=== PATIENT | male | born 1965 | race Caucasian/White ===

== ENCOUNTER 2021-09-21 22:22 | Inpatient (IN) | payer OTHER, SELFPAY ==
[2021-09-21 22:41] VITALS: BP 150/88; PULSE 92; RESP 18; TEMP 36.4; O2SAT 96; BMI 36.9
--- NOTE | 2021-09-21 22:46 | W.ED.PSYCHS ---
HPI - Psych General: Chief Complaint: Psychiatric Symptoms Stated Complaint: [address] [place] [address] Time Seen by Provider: 09/21/21 22:27 Source: patient and police Mode of arrival: other (police) Limitations: no limitations History of Present Illness: 56-year-old male who is here with police for suicidal ideation. He states that recently and found out that his has been cheating on him for years and has became severely depressed over it. He states he was driving down the road 100 mph there they looking for a rock left run into and then decided not to he also had pills out before and was going to take them all to kill himself he still having active suicidal thoughts currently as well he has been drinking today denies any worsening improving factors. Associated symptoms: Reports depression and suicidal ideation Review of Systems Const: Denies: fever(s), chills, body aches or change in appetite Eyes: Denies: blurry vision or eye discomfort ENMT: Denies: throat pain or dental pain Card: Denies: chest pain Resp: Denies: dyspnea GI: Denies: abdominal pain, nausea, vomiting or diarrhea : Denies: dysuria Musc: Denies: neck pain or back pain Skin/Breast: Denies: rash Neuro: Denies: headache(s) Psych: Reports: depression and suicidal ideation Gee/Lymph: Denies: easy bruising All/Imm: Denies: urticaria PFSH ED PFSH: Family History (Updated 09/21/21 @ 22:49 by Rasheed Gomez MD) Denies family history of Cancer Social History (Updated 09/21/21 @ 22:49 by Rasheed Gomez MD) Alcohol intake: current Physical Exam Const: COMMON NORMALS: no acute distress, patient oriented x3 and healthy appearing HENMT: COMMON NORMALS: normocephalic and atraumatic HEAD & SCALP: normocephalic and atraumatic Eye: COMMON NORMALS: Equal, round and reactive pupils present and EOMs intact bilaterally PUPIL: Yes Equal, round and reactive pupils present Neck/C-Spine: COMMON NORMALS: full ROM and supple Chest: COMMONS NORMALS: normal inspection of the chest and normal palpation of entire chest wall Resp: COMMON NORMALS: normal respiratory effort, No retractions, No use of accessory muscles and clear to auscultation bilaterally AUSCULTATION: clear to auscultation bilaterally Cardio: COMMON NORMALS: regular rate, regular rhythm and No murmurs present (Cardio) RATE: regular rate RHYTHM: regular rhythm GI: COMMON NORMALS: Normal to inspection, nondistended, normoactive bowel sounds present, Soft to palpation, non-tender and no masses PALPATION: Yes Soft to palpation Extremity: COMMON NORMALS: normal to inspection and full ROM Neuro: COMMON NORMALS: patient oriented x3, moves all extremities and no focal motor deficits Psych: COMMON NORMALS: mental status grossly normal, Normal thought process present and cooperative MOOD & AFFECT: Yes depressed mood THOUGHT PROCESS: Normal thought process present THOUGHT CONTENT: Yes Suicidality present Skin: COMMON NORMALS: no rashes or lesions noted and no wounds GENERAL SKIN EXAM: no rashes or lesions noted Course Vital Signs: Vital signs: Vital Signs Temperature 97.6 F 09/21/21 22:41 Pulse Rate 92 09/21/21 22:41 Respiratory Rate 18 09/21/21 22:41 Blood Pressure 150/88 09/21/21 22:41 Pulse Oximetry 96 09/21/21 22:41 MDM - Psych Medical Decision Making Patient presents here with suicidal ideation he has been medically cleared I spoke to Dr. Song will admit the psychiatric unit. Lab Data : 09/21/21 22:46 09/21/21 22:46 Laboratory Results WBC 10.2 10^3/uL (4.0-10.0) H 09/21/21 22:46 RBC 4.82 10^6/uL (4.1-5.3) 09/21/21 22:46 Hgb 15.4 g/dL (11.7-16.6) 09/21/21 22:46 Hct 44.3 % (42.0-52.0) 09/21/21 22:46 MCV 91.9 fl (80-94) 09/21/21 22:46 MCH 32.0 pg (28.0-34.0) 09/21/21 22:46 MCHC 34.8 g/dL (30.0-36.0) 09/21/21 22:46 RDW 11.9 % (12.1-15.1) L 09/21/21 22:46 Plt Count 254 10^3/cmm (130-400) 09/21/21 22:46 MPV 9.2 fL (7.4-10.4) 09/21/21 22:46 Neut % (Auto) 77.1 % 09/21/21 22:46 Lymph % (Auto) 16.2 % 09/21/21 22:46 [place] % (Auto) 5.5 % 09/21/21 22:46 Eos % (Auto) 0.4 % 09/21/21 22:46 Baso % (Auto) 0.4 % 09/21/21 22:46 Neut # (Auto) 7.89 10^3/uL (1.8-7.7) H 09/21/21 22:46 Lymph # (Auto) 1.7 10^3/uL (0.8-4.8) 09/21/21 22:46 [place] # (Auto) 0.6 10^3/uL (0.2-0.9) 09/21/21 22:46 Eos # (Auto) 0.0 10^3/uL (0.0-0.8) 09/21/21 22:46 Baso # (Auto) 0.0 10^3/uL (0.0-0.1) 09/21/21 22:46 Nucleated RBC % (auto) 0 % 09/21/21 22:46 Nucleated RBCs # 0.0 /100WBC 09/21/21 22:46 Sodium 144 mmol/L (136-145) 09/21/21 22:46 Potassium 3.2 mmol/L (3.5-5.1) L 09/21/21 22:46 Chloride 104 mmol/L (98-107) 09/21/21 22:46 Carbon Dioxide 22 mmol/L (22-29) 09/21/21 22:46 Anion Gap 21.2 (5-19) H 09/21/21 22:46 BUN 16 mg/dL (6-20) 09/21/21 22:46 Creatinine 0.9 mg/dL (0.7-1.2) 09/21/21 22:46 GFR Calculation 87.0 mL/min (90-130) L 09/21/21 22:46 Glucose 110 mg/dL (65-115) 09/21/21 22:46 Calculated Osmolality 300 mOsm/kg (285-295) H 09/21/21 22:46 Calcium 8.2 mg/dL (8.5-10.5) L 09/21/21 22:46 Total Bilirubin 0.5 mg/dL (0.15-1.2) 09/21/21 22:46 AST 30 U/L (0-40) 09/21/21 22:46 ALT 40 U/L (0-41) 09/21/21 22:46 Alkaline Phosphatase 98 IU/L (40-130) 09/21/21 22:46 Total Protein 7.3 g/dL (6.6-8.7) 09/21/21 22:46 Albumin 4.6 g/dL (3.5-5.2) 09/21/21 22:46 Globulin 2.7 g/dL (1.3-4.6) 09/21/21 22:46 Salicylates < 0.3 mg/dL (3-10) L 09/21/21 22:46 Acetaminophen < 5.0 ug/mL (10-30) L 09/21/21 22:46 Ethyl Alcohol 174 mg/dL (0-10) H 09/21/21 22:46 Discharge Plan Discharge Patient Disposition: Admitted As Inpatient Clinical Impression: Suicidal ideation, ETOH abuse Coding Level of Care Code ED Production Stage Manager for Janene Fwd Exam Comprehensive
[2021-09-21 23:01] LABS: Basophils % 0.4 %; Eosinophils % 0.4 %; Hematocrit 44.3 % (42.0-52.0); Hemoglobin 15.4 g/dL (11.7-16.6); Lymphocytes # 1.7 10^3/uL (0.8-4.8); Lymphocytes % 16.2 %; Mean Corpuscular HGB Conc 34.8 g/dL (30.0-36.0); Mean Corpuscular Volume 91.9 fl (80-94); Mean Platelet Volume 9.2 fL (7.4-10.4); Monocytes # 0.6 10^3/uL (0.2-0.9); Monocytes % 5.5 %; Neutrophils # 7.89 10^3/uL (1.8-7.7); Neutrophils % 77.1 %; Nucleated Red Blood Cells % 0 %; Platelet Count 254 10^3/cmm (130-400); Red Blood Count 4.82 10^6/uL (4.1-5.3); Red Cell Distribution Width 11.9 % (12.1-15.1); White Blood Count 10.2 10^3/uL (4.0-10.0)
[2021-09-21 23:25] LABS: Alanine Aminotransferase 40 U/L (0-41); Albumin Level 4.6 g/dL (3.5-5.2); Alcohol Level 174 mg/dL (0-10); Alkaline Phosphatase 98 IU/L (40-130); Anion Gap 21.2 (5-19); Aspartate Amino Transferase 30 U/L (0-40); Blood Urea Nitrogen 16 mg/dL (6-20); Calcium 8.2 mg/dL (8.5-10.5); Carbon Dioxide 22 mmol/L (22-29); Chloride 104 mmol/L (98-107); Globulin 2.7 g/dL (1.3-4.6); Glucose 110 mg/dL (65-115); Osmolality Calculated 300 mOsm/kg (285-295); Potassium 3.2 mmol/L (3.5-5.1); Sodium 144 mmol/L (136-145); Total Bilirubin 0.5 mg/dL (0.15-1.2); Total Protein 7.3 g/dL (6.6-8.7)
[2021-09-21 23:32] LABS: Acetaminophen < 5.0 ug/mL (10-30); Salicylate < 0.3 mg/dL (3-10)
--- NOTE | 2021-09-22 01:11 | PC.NURSE ---
Pt. is lying in the floor and faces away from staff. pt. is crying , states that his kids don't love him.
[2021-09-22 03:29] VITALS: BP 144/81; PULSE 81; RESP 20; TEMP 37; O2SAT 95
[2021-09-22 06:00] VITALS: BP 155/93; PULSE 71; RESP 18; TEMP 36.8; O2SAT 98
[2021-09-22 07:31] LABS: Amphetamines Screen Urine Positive (Negative); Barbiturates Screen Urine Negative (Negative); Benzodiazepines Screen Urine Negative (Negative); Cocaine Screen Urine Negative (Negative); Opiate Screen Urine Positive (Negative); PCP Screen Urine Negative (Negative); THC Screen Urine Negative (Negative)
[2021-09-22] MEDS: HYDROcodone-acetaminophen 7.5-325 mg Tablet 1 TAB PO ×2 (09:09→17:48)
[2021-09-22] MEDS: thiamine 100 mg Tablet PO (09:09)
[2021-09-22] MEDS: multivitamin therapeutic Tablet 1 TAB PO (09:12)
[2021-09-22] MEDS: pantoprazole DR 40 mg Tablet PO (09:12)
[2021-09-22] MEDS: folic acid 1 mg Tablet PO (09:12)
[2021-09-22] MEDS: FUROsemide 40 mg Tablet PO (09:13)
[2021-09-22] MEDS: lisinopril 20 mg Tablet PO (09:13)
[2021-09-22] MEDS: metoprolol succinate ER (24 HR) 50 mg Tablet PO (11:12)
[2021-09-22 14:00] VITALS: BP 154/82; PULSE 63; RESP 18; TEMP 36.7; O2SAT 97
--- NOTE | 2021-09-22 15:57 | P.NPUHP_ITS ---
Providers/Chief Complaint Admitting Physician: Tye Song MD Chief Complaint: [address] [place] [address] NPU History of Present Illness Kendrick Coreas is a 56 year old male who presented to the emergency department with the following report: Chief Complaint: Psychiatric Symptoms Stated Complaint: [address] [place] [address] Time Seen by Provider: 09/21/21 22:27 Source: patient and police Mode of arrival: other (police) Limitations: no limitations History of Present Illness:?? 56-year-old male who is here with police for suicidal ideation.? He states that recently and found out that his has been cheating on him for years and has became severely depressed over it.? He states he was driving down the road 100 mph there they looking for a rock left run into and then decided not to he also had pills out before and was going to take them all to kill himself he still having active suicidal thoughts currently as well he has been drinking today denies any worsening improving factors. Associated symptoms: Reports depression and suicidal ideation He was admitted to the psychiatric unit for definitive treatment of those issues. He presents today reporting that he has never been in a psychiatric hospital, has never had outpatient services, and has never been on medication. He denies smoking cigarettes, endorses alcohol once week, maybe one mixed drink, denies marijuana or any other illicit drug use. He has never been to rehab and never had a DUI. He presents reporting that he has never really had psychiatric services but reports he had a fairly traumatic couple of days. He reports that he figured out his had been cheating the last three years with several people and he reportedly drank too much; he says he made one comment about being suicidal. Review of the chart, which is a little more involved, has the plain clothes police officer who put him on the 96 hour hold, stating that on two or three occasions the patient made statements endorsing lethality on three separate occasions. The patient had been drinking and he was positive for alcohol and his GDS was also positive for methamphetamines and opiates; this was noted after our interview and will need to review the latter two with him tomorrow as he acknowledged he had been drink ing. Otherwise he denies any problems, he states it was just a case of him being drunk and saying the wrong thing. Denies any history or need for psychiatric interventions and was hoping he could go home. He was not interested in any medications or referrals. Psychiatric History: As above. Substance Abuse History: As above Family History: Patient denies mental health or addiction issues on either side of the family and denies suicide attempts or completions in the family. Developmental History: There were no problems with , or delivery, learned to walk and talk and met his developmental milestones on time, and denies need for speech therapy, learning support, emotional support or special education classes. Psychosocial History: He reports his parents were together when he was born and stayed together. He reports he has a younger brother and older sister. He reports his childhood was good and denies any emotional, sexual or physical abuse. He endorses graduating from high school with no additional training. He identifies as heterosexual and his longest relationship is his current relationship of 19 years. He reports that he has been two times and once; he reports he has two biological children and three step children. His son is in his 30s and his daughter is in her 20s. 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 He reports he lives in a house with his and youngest step-son who is about 19 years old. Legal History: He denies ever being in retirement or having any legal issues. Medical History: He endorses high blood pressure, high cholesteral, arthritis and obesity. Meds NPU Home Medications Medication Instructions Recorded Confirmed Last Taken Type atorvastatin 10 mg tablet 10 mg PO DAILY 09/22/21 09/22/21 Unknown History etodolac 400 mg tablet 400 mg PO BID 09/22/21 09/22/21 Unknown History furosemide 40 mg tablet 40 mg PO DAILY 09/22/21 09/22/21 Unknown History hydrocodone 7.5 mg-acetaminophen 1 tab PO BID 09/22/21 09/22/21 Unknown History 325 mg tablet lisinopril 20 mg tablet 20 mg PO DAILY 09/22/21 09/22/21 Unknown History metoprolol succinate 50 mg 50 mg PO DAILY 09/22/21 09/22/21 Unknown History tablet,extended release 24 hr omeprazole 20 mg capsule,delayed 20 mg PO DAILY 09/22/21 09/22/21 Unknown History release Allergies Allergy/AdvReac Type Severity Reaction Status Date / Time No Known Allergies Allergy Verified 09/21/21 22:41 PFS NPU PFSH: Family History (Updated 09/21/21 @ 22:49 by Rasheed Gomez MD) Denies family history of Cancer Social History (Updated 09/21/21 @ 22:49 by Rasheed Gomez MD) Alcohol intake: current Mental Status Exam MSE Comments: This is an obese white male in hospital scrubs with adequate grooming and eye contact. No abnormal movements. Cooperative with exam in no acute distress. Speech was normal rate and volume. Patient mood described as great, affect is slightly irritable. Thought process, organized. Thought content: patient denies any suicidal or homicidal ideation, no delusions reported or noted, and denies any auditory or visual hallucinations. Attention, concentration and memory appeared intact and reliable but were not formally test ed. He is alert and oriented three times. Insight and judgement are limited. Impulse control is limited. Vitals/I&O/Wt Last Vital Signs Temp 98.0 F 09/22/21 14:00 Pulse 63 09/22/21 14:00 Resp 18 09/22/21 14:00 BP 154/82 09/22/21 14:00 Pulse Ox 97 09/22/21 14:00 Weight last 48 hrs Weight 113.398 kg Data NPU : 09/21/21 22:46 09/21/21 22:46 A&P Assessment and plan (1) Suicidal ideation: Status: Acute (2) ETOH abuse: Status: Acute (3) Adjustment disorder with mixed disturbance of emotions and conduct: Status: Acute (4) Partner relational problem: Status: Acute Plan This is a 56 year old white male with no psychiatric history with recent partner relationship problems and some question of addiction greater than he is discussing with elevated blood alcohol and multiple positive drug panels who presents reporting he was 'just drunk and said something out of line' but would like to go home. We discussed the risks, benefits and alternatives of medication and the patient did not wish to proceed as is documented in this note. 1. Continue all current medication 2. Encourage individual, group and milieu therapy 3. Continue q-15 minute check for safety 4. Recommend sober living treatment at the highest level of care to which the patient is willing to commit. Involuntary Hold Information 96 Hour Hold: 96 Hour Involuntary Admission: Yes 96 Hour Hold Ending Date: 09/27/21 96 Hour Hold Ending Time: 23:20 Attestations NPU Medical Necessity Statement*: Inpatient hospitalization is medically necessary and the clinically appropriate intervention at this time. We will monitor medications and make changes as indicated. Patient will be in the hospital for over two midnights. Likely length of stay is two to four days. Coding Level of Care Code Acute Matrix Worker for Janene Fwd Diagnoses Suicidal ideation R45.851 ETOH abuse F10.10 Adjustment disorder with mixed disturbance of emotions and conduct F43.25 Partner relational problem Z63.0
[2021-09-22] MEDS: atorvastatin 40 mg Tablet 20 MG PO (17:49)
[2021-09-22 21:19] VITALS: BP 125/76; PULSE 53; RESP 17; TEMP 36.8; O2SAT 97
[2021-09-23 06:00] VITALS: BP 143/91; PULSE 62; RESP 18; TEMP 36.6; O2SAT 96
--- NOTE | 2021-09-23 08:54 | W.PM.NPUPNS ---
Subjective NPU Subjective: Interval history: Patient presented today denying very strongly the possibility that the amphetamines identified in his drug screen could be anything other than a false positive. He acknowledges the opiates from his medication and obviously the alcohol from having right, however he denies any possibility that he is methamphetamine by any means. Change his story somewhat as he had advised this justowriter operator that his son-in-law had taken all guns out of the home as we discussed that as a precursor to any consideration for discharge. He said he could have him take about the home and so we spent part of the day getting in contact and getting some labs were that he would take care of that. We discussed the likelihood of discharge in the next 48 hours. Mental Status Exam MSE Comments: This is an obese white male in hospital scrubs with adequate grooming and eye contact. No abnormal movements. Cooperative with exam in no acute distress. Speech was normal rate and volume. Patient mood described as good other than having to stay here, affect is slightly irritable. Thought process, organized. Thought content: patient denies any suicidal or homicidal ideation, no delusions reported or noted, and denies any auditory or visual hallucinations. Attention, concentration and memory appeared intact and reliable but were not formally tested. He is alert and oriented three times. Insight and judgement are limited. Impulse control is limited. Vitals/I&O/Wt Last Vital Signs Temp 97.8 F 09/23/21 06:00 Pulse 62 09/23/21 06:00 Resp 18 09/23/21 06:00 BP 143/91 09/23/21 06:00 Pulse Ox 96 09/23/21 06:00 Weight last 48 hrs Weight 113.398 kg Data NPU : 09/21/21 22:46 09/21/21 22:46 A&P Assessment and plan (1) Partner relational problem: Status: Acute (2) Adjustment disorder with mixed disturbance of emotions and conduct: Status: Acute (3) Suicidal ideation: Status: Acute (4) ETOH abuse: Status: Acute Plan This is a 56 year old white male with no psychiatric history with recent partner relationship problems and some question of addiction greater than he is discussing with elevated blood alcohol and multiple positive drug panels who presents reporting he was 'just drunk and said something out of line' but would like to go home. We discussed the risks, benefits and alternatives of medication and the patient did not wish to proceed as is documented in this note. 1. Continue all current medication? 2. Encourage individual, group and milieu therapy 3. Continue q-15 minute check for safety 4. Recommend sober living treatment at the highest level of care to which the patient is willing to commit. 5. We will await were the guns have been removed and consider the possibility of discharge in the morning. Involuntary Hold Information 96 Hour Hold: 96 Hour Involuntary Admission: Yes 96 Hour Hold Ending Date: 09/27/21 96 Hour Hold Ending Time: 23:20 Attestations NPU Medical Necessity Statement*: Inpatient hospitalization is medically necessary and the clinically appropriate intervention at this time. We will monitor medications and make changes as indicated. Likely length of stay is 1-3 days. Coding Level of Care Code Acute Online Marketing Director for Janene Yates Diagnoses Partner relational problem Z63.0 Adjustment disorder with mixed disturbance of emotions and conduct F43.25 Suicidal ideation R45.851 ETOH abuse F10.10
[2021-09-23] MEDS: FUROsemide 40 mg Tablet PO (09:29)
[2021-09-23] MEDS: multivitamin therapeutic Tablet 1 TAB PO (09:29)
[2021-09-23] MEDS: folic acid 1 mg Tablet PO (09:29)
[2021-09-23] MEDS: HYDROcodone-acetaminophen 7.5-325 mg Tablet 1 TAB PO ×2 (09:29→17:35)
[2021-09-23] MEDS: metoprolol succinate ER (24 HR) 50 mg Tablet PO (09:30)
[2021-09-23] MEDS: pantoprazole DR 40 mg Tablet PO (09:30)
[2021-09-23] MEDS: thiamine 100 mg Tablet PO (09:30)
[2021-09-23] MEDS: lisinopril 20 mg Tablet PO (09:30)
--- NOTE | 2021-09-23 12:21 | PC.NURSE ---
Patient put son in law, Vipul, on consent. Requested nurse to call Vipul to ask him to remove all guns from home. This nurse called and Vipul confirmed that he could and would remove guns from home.
[2021-09-23 14:00] VITALS: BP 157/86; PULSE 98; RESP 17; TEMP 36.4; O2SAT 97
[2021-09-23] MEDS: atorvastatin 40 mg Tablet 20 MG PO (17:34)
[2021-09-23 20:31] VITALS: BP 121/77; PULSE 69; RESP 17; TEMP 36.7; O2SAT 92
[2021-09-24 06:00] VITALS: BP 134/86; PULSE 58; RESP 18; TEMP 36.6; O2SAT 96
[2021-09-24] MEDS: FUROsemide 40 mg Tablet PO (10:34)
[2021-09-24] MEDS: HYDROcodone-acetaminophen 7.5-325 mg Tablet 1 TAB PO (10:34)
[2021-09-24] MEDS: metoprolol succinate ER (24 HR) 50 mg Tablet PO (10:35)
[2021-09-24] MEDS: folic acid 1 mg Tablet PO (10:35)
[2021-09-24] MEDS: thiamine 100 mg Tablet PO (10:35)
[2021-09-24] MEDS: lisinopril 20 mg Tablet PO (10:35)
[2021-09-24] MEDS: multivitamin therapeutic Tablet 1 TAB PO (10:36)
[2021-09-24] MEDS: pantoprazole DR 40 mg Tablet PO (10:36)
--- NOTE | 2021-09-24 11:16 | P.NPUDS_ITS ---
Diagnoses at Discharge Discharge Diagnosis (1) Partner relational problem: Status: Acute (2) Adjustment disorder with mixed disturbance of emotions and conduct: Status: Acute (3) Suicidal ideation: Status: Resolved (4) ETOH abuse: Status: Acute Reason for Visit Reason for Visit: [address] [place] [address] Brief History: History of Present Illness Kendrick Coreas is a 56 year old male who presented to the emergency department with the following report: Chief Complaint: P sychiatric Symptom s Stated Complaint : - [facility] y Time Seen by Pro vider: 09/21/21 22 :27 Source: patien t and police Mode of arrival: other (police) Limitatio ns: no limitations ? ? History of Present Illness:??? 56-year-old male who is here with shemar farooq for suicidal ideation.? He sta vanessa that recently and found out that his has been cheating on him f or years and has b ecame severely dep ressed over it.? H e states he was dr simpson down the [place] 100 mph there th looking for a r ock left run into and then decided n ot to he also had pills out before a nd was going to ta ke them all to kil l himself he still having active jacquie cidal thoughts cur rently as well he has been drinking today denies any w orsening improving factors.Associate d symptoms: Report s depression and s uicidal ideation He was admitted to the psychiatric unit for definitive treatment of those issues. He presents today reporting that he has never been in a psychiatric hospital, has never had outpatient services, and has never been on medication. He denies smoking cigarettes, endorses alcohol once week, maybe one mixed drink, denies marijuana or any other illicit drug use. He has never been to rehab and never had a DUI. He presents reporting that he has never really had psychiatric services but reports he had a fairly traumatic couple of days. He reports that he figured out his had been cheating the last three years with several people and he reportedly drank too much; he says he made one comment about being suicidal. Review of the chart, which is a little more involved, has the education officer who put him on the 96 hour hold, stating that on two or three occasions the patient made statements endorsing lethality on three separate occasions. The patient had been drinking and he was positive for alcohol and his GDS was also positive for methamphetamines and opiates; this was noted after our interview and will need to review the latter two with him tomorrow as he acknowledged he had been drinking. Otherwise he denies any problems, he states it was just a case of him being drunk and saying the wrong thing. Denies any history or need for psychiatric interventions and was hoping he could go home. He was not interested in any medications or referrals. Psychiatric History: As above. Substance Abuse History: As above Family History: Patient denies mental health or addiction issues on either side of the family and denies suicide attempts or completions in the family. Developmental History: ? There were no problems with , or delivery, learned to walk and talk and met his developmental milestones on time, and denies need for speech therapy, learning support, emotional support or special education classes. Psychosocial History: He reports his parents were together when he was born and stayed together. He reports he has a younger brother and older sister. He reports his childhood was good and denies any emotional, sexual or physical abuse. He endorses graduating from high school with no additional training. He identifies as heterosexual and his longest relationship is his current relationship of 19 years. He reports that he has been two times and once; he reports he has two biological children and three step children. His son is in his 30s and his daughter is in her 20s. 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 He reports he lives in a house with his and youngest step-son who is about 19 years old. Legal History: He denies ever being in shelter or having any legal issues. Medical History: He endorses high blood pressure, high cholesteral, arthritis and obesity. Hospital Course Hospital Course He quickly acclimated to the individual, group and milieu therapies provided. We needed to work with him to ensure that the home environment was safe given the situation. He was able to get sober on the unit and he was open to some recommendations for approaching the situation. There were no new medications initiated and he was able to contract for safety outside the hospital prior to discharge. During the hospitalization, patient had routine laboratory studies which were within normal limits except for few outliers. Additionally there was a general medical evaluation which was also within normal limits and revealed no new acute processes. Discharge Summary: At the time of discharge, he denied psychosis or lethality. Mood and anxiety were well managed. Patient endorsed a plan to avoid all drugs of abuse and follow-up with the aftercare recommendations of the treatment team. Patient was evaluated and deemed to be absent credible lethality, and had achieved the maximum benefit from an inpatient hospitalization, so was discharged. Involuntary Hold Information 96 Hour Hold: 96 Hour Involuntary Admission: Yes 96 Hour Hold Ending Date: 09/27/21 96 Hour Hold Ending Time: 23:20 Mental Status Exam MSE Comments: This is an obese white male in hospital scrubs with adequate grooming and eye contact. No abnormal movements. Cooperative with exam in no acute distress. Speech was normal rate and volume. Patient mood described as better/good, affect is more congruent. Thought process, organized. Thought content: patient denies any suicidal or homicidal ideation, no delusions reported or noted, and denies any auditory or visual hallucinations. Attention, concentration and memory appeared intact and reliable but were not formally t ested. He is alert and oriented three times. Insight and judgement are limited, but improving Impulse control is limited, but improving. Discharge Data Studies Completed and Pending: Laboratory Results WBC 10.2 10^3/uL (4.0 -10.0) H 09/21/21 22:46 RBC 4.82 10^6/uL (4.1 -5.3) 09/21/21 22:46 Hgb 15.4 g/dL (11.7-1 6.6) 09/21/21 22:46 Hct 44.3 % (42.0-52.0 ) 09/21/21 22:46 MCV 91.9 fl (80-94) 09/21/21 22:46 MCH 32.0 pg (28.0-34. 0) 09/21/21 22:46 MCHC 34.8 g/dL (30.0-3 6.0) 09/21/21 22:46 RDW 11.9 % (12.1-15.1 ) L 09/21/21 22:46 Plt Count 254 10^3/cmm (130 -400) 09/21/21 22:46 MPV 9.2 fL (7.4-10.4) 09/21/21 22:46 Neut % (Auto) 77.1 % 09/21/21 22:46 Lymph % (Auto) 16.2 % 09/21/21 22:46 [place] % (Auto) 5.5 % 09/21/21 22:46 Eos % (Auto) 0.4 % 09/21/21 22:46 Baso % (Auto) 0.4 % 09/21/21 22:46 Neut # (Auto) 7.89 10^3/uL (1.8 -7.7) H 09/21/21 22:46 Lymph # (Auto) 1.7 10^3/uL (0.8- 4.8) 09/21/21 22:46 [place] # (Auto) 0.6 10^3/uL (0.2- 0.9) 09/21/21 22:46 Eos # (Auto) 0.0 10^3/uL (0.0- 0.8) 09/21/21 22:46 Baso # (Auto) 0.0 10^3/uL (0.0- 0.1) 09/21/21 22:46 Nucleated RBC % (a uto) 0 % 09/21/21 22:46 Nucleated RBCs # 0.0 /100WBC 09/21/21 22:46 Sodium 144 mmol/L (136-1 45) 09/21/21 22:46 Potassium 3.2 mmol/L (3.5-5 .1) L 09/21/21 22:46 Chloride 104 mmol/L (98-10 7) 09/21/21 22:46 Carbon Dioxide 22 mmol/L (22-29) 09/21/21 22:46 Anion Gap 21.2 (5-19) H 09/21/21 22:46 BUN 16 mg/dL (6-20) 09/21/21 22:46 Creatinine 0.9 mg/dL (0.7-1. 2) 09/21/21 22:46 GFR Calculation 87.0 mL/min (90-1 30) L 09/21/21 22:46 Glucose 110 mg/dL (65-115 ) 09/21/21 22:46 Calculated Osmolal ity 300 mOsm/kg (285- 295) H 09/21/21 22:46 Calcium 8.2 mg/dL (8.5-10 .5) L 09/21/21 22:46 Total Bilirubin 0.5 mg/dL (0.15-1 .2) 09/21/21 22:46 AST 30 U/L (0-40) 09/21/21 22:46 ALT 40 U/L (0-41) 09/21/21 22:46 Alkaline Phosphata se 98 IU/L (40-130) 09/21/21 22:46 Total Protein 7.3 g/dL (6.6-8.7 ) 09/21/21 22:46 Albumin 4.6 g/dL (3.5-5.2 ) 09/21/21 22:46 Globulin 2.7 g/dL (1.3-4.6 ) 09/21/21 22:46 Salicylates < 0.3 mg/dL (3-10 ) L 09/21/21 22:46 Urine Opiates Scre en Positive ng/mL (N egative) H 09/22/21 06:11 Acetaminophen < 5.0 ug/mL (10-3 0) L 09/21/21 22:46 Ur Barbiturates Sc reen Negative ng/mL (N egative) 09/22/21 06:11 Ur Phencyclidine S crn Negative ng/mL (N egative) 09/22/21 06:11 Ur Amphetamines Sc reen Positive ng/mL (N egative) H 09/22/21 06:11 U Benzodiazepines Scrn Negative ng/mL (N egative) 09/22/21 06:11 Urine Cocaine Scre en Negative ng/mL (N egative) 09/22/21 06:11 U Marijuana (THC) Screen Negative ng/mL (N egative) 09/22/21 06:11 Ethyl Alcohol 174 mg/dL (0-10) H 09/21/21 22:46 Vitals: Last Vital Signs Temp 98 F 09/24/21 06:00 Pulse 58 L 09/24/21 06:00 Resp 18 09/24/21 06:00 BP 134/86 09/24/21 06:00 Pulse Ox 96 09/24/21 06:00 Discharge Plan Discharge Patient Disposition: Home Condition: Stable Prescriptions: New Vitamin B-1 (mononitrate) 100 mg Tablet 100 mg PO DAILY 30 Days Qty: 30 1RF Continued atorvastatin 10 mg tablet 10 mg PO DAILY 0RF hydrocodone-acetaminophen 7.5-325 mg tablet 1 tab PO BID 0RF Rx Instructions: May take one additional PRN daily lisinopril 20 mg tablet 20 mg PO DAILY 0RF etodolac 400 mg tablet 400 mg PO BID 0RF furosemide 40 mg tablet 40 mg PO DAILY 0RF metoprolol succinate 50 mg tablet extended release 24 hr 50 mg PO DAILY 0RF omeprazole 20 mg capsule,delayed release(DR/EC) 20 mg PO DAILY 0RF Discharge Orders: Discharge Order (Routine); Ordered 09/24/21 Ordered By: Tye Song Discharge Diet: Regular Discharge Activity: Resume usual activity Patient Instructions: Opioid Safety Discharge Attestations NPU Time Spent in Discharge Care*: less than 30 min Specific Discharge Activities: Specific discharge activities: educating patient, discussing with major case detective/social workers/dc planners, documenting/other paperwork and evaluating patient/reviewing data Coding Level of Care Code Acute Chg DC note Diagnoses Partner relational problem Z63.0 Adjustment disorder with mixed disturbance of emotions and conduct F43.25 Suicidal ideation R45.851 ETOH abuse F10.10
[2021-09-24 12:58] VITALS: BP 134/86; PULSE 58; RESP 18; TEMP 36.6; O2SAT 96
--- NOTE | 2021-09-24 12:59 | NPU.GN ---
[facility] Group Topic: Whine Barrel Activity General Mood of Group: Kendrick did not attend group today.
== END 2021-09-24 13:05 | disposition home or self-care (01) | DRG 881 ==
LOC: ER 09-22 01:31 → NP 09-22 03:15
PROVIDERS: Admitting Provider Psychiatry & Neurology Psychiatry; Emergency Provider Emergency Medicine; Visit Provider Psychiatry & Neurology Psychiatry
DX: F32.A Depression, unspecified (principal); R45.851 Suicidal ideations; F10.10 Alcohol abuse, uncomplicated; I10 Essential (primary) hypertension; E78.00 Pure hypercholesterolemia, unspecified; M19.90 Unspecified osteoarthritis, unspecified site; E66.9 Obesity, unspecified; Z68.36 Body mass index [BMI] 36.0-36.9, adult; F43.25 Adjustment disorder with mixed disturbance of emotions and conduct; Z63.0 Problems in relationship with spouse or partner; Z79.891 Long term (current) use of opiate analgesic
CPT/HCPCS: 80053; 80306; 80307; 85025; 97150; 97165; 99285